=== PATIENT | female | born 1990 | race American Indian/Alaskan Native ===

== ENCOUNTER 2017-04-06 19:22 | Emergency (ER) | payer MEDICAID ==
[2017-04-06 22:00] VITALS: BP 117/69
== END 2017-04-07 08:59 | disposition left against medical advice (07) ==
LOC: ED 19:22
DX: O26.892 Other specified pregnancy related conditions, second trimester (principal); R50.9 Fever, unspecified; R51 Headache; Z3A.20 20 weeks gestation of pregnancy
CPT/HCPCS: 93005; 93010